=== PATIENT | female | born 1985 | race Caucasian/White ===

== ENCOUNTER 2017-08-10 18:02 | Emergency (ER) | payer OTHER ==
[~2017-08-10] VITALS: Wt 63.5 kg
[~2017-08-10 18:02] MED LIST: ATIVAN2 MG PO
[2017-08-10 18:44] LABS: BASO % 0.4 % (0.0-1.0); EOS # 0.2 10*3/uL (0.0-0.4); EOS % 2.4 % (1.0-4.0); HEMATOCRIT 40.7 % (37.0-47.0); HEMOGLOBIN 13.4 g/dl (12.0-16.0); LYMPH # 2.6 10*3/uL (1.3-4.4); LYMPH % 30.3 % (27.0-41.0); MEAN CELL VOLUME 91.1 fl (81.0-99.0); MEAN CORPUSCULAR HGB CONC 32.9 g/dl (33.0-37.0); MEAN PLATELET VOLUME 9.6 fl (9.6-12.3); MONO # 0.6 10*3/uL (0.1-1.0); MONO % 7.1 % (3.0-9.0); NEUT % 59.6 % (47.0-73.0); PLATELET COUNT AUTOMATED 183 10*3/uL (130-400); RED BLOOD COUNT 4.47 10*6/uL (4.10-5.10); RED CELL DISTRI WIDTH 12.1 % (0-14.5); WHITE BLOOD COUNT 8.4 10*3/uL (4.8-10.8)
[2017-08-10 18:59] LABS: ALKALINE PHOSPHATASE 50 U/L (45-117); BUN 13 mg/dl (7-24); CHLORIDE 105 mmol/L (98-107); CREATININE 0.58 mg/dL (0.55-1.02); POTASSIUM 3.7 mmol/L (3.5-5.1); SGOT/AST 22 IU/L (3-35); SGPT/ALT 29 U/L (12-78); SODIUM 141 mmol/L (136-145); TOTAL PROTEIN 7.6 gm/dL (6.4-8.2)
[2017-08-10] MEDS ORDERED: PREDNISONE10 MG PO (19:07)
[2017-08-10] MEDS ORDERED: FLONASE ALLERG9.9 ML NAS (19:07)
[2017-08-10] MEDS ORDERED: CLARITIN10 MG PO (19:07)
== END 2017-08-10 19:09 | disposition home or self-care (01) ==
LOC: ED 18:02
PROVIDERS: Nurse Practitioner Family
DX: J02.9 Acute pharyngitis, unspecified (principal); F17.200 Nicotine dependence, unspecified, uncomplicated

== ENCOUNTER 2018-09-11 18:06 | Emergency (ER) | payer OTHER ==
[~2018-09-11] VITALS: Ht 157.4 cm; Wt 63.5 kg
[~2018-09-11 18:06] MED LIST changes: +CLARITIN10 MG PO; +FLONASE ALLERG9.9 ML NAS; +PREDNISONE10 MG PO
[2018-09-11 18:21] LABS: BILIRUBIN NEGATIVE (NEGATIVE); BLOOD NEGATIVE (NEGATIVE); CLARITY CLEAR (CLEAR); COLOR YELLOW (YELLOW); GLUCOSE NEGATIVE (NEGATIVE); KETONE NEGATIVE (NEGATIVE); LEUKO ESTERASE 1+ (NEGATIVE); NITRITE NEGATIVE (NEGATIVE); SPECIFIC GRAVITY 1.015 (1.005-1.030); UROBILINOGEN 0.2 E.U./dl (0.2-1.0)
[2018-09-11 18:24] LABS: BACTERIA 1+
[2018-09-11] MEDS ORDERED: AMINOPHYLLIN200 MG PO (18:34)
== END 2018-09-11 19:11 | disposition home or self-care (01) ==
LOC: ED 18:06
PROVIDERS: Physician Assistant
DX: N39.0 Urinary tract infection, site not specified (principal); Z32.02 Encounter for pregnancy test, result negative; Z79.899 Other long term (current) drug therapy

== ENCOUNTER → 2018-10-24 | Outpatient (CLI) | payer OTHER ==
[~2018-10-24] MED LIST changes: +AMINOPHYLLIN200 MG PO
== END | disposition home or self-care (01) ==
LOC: US 16:00
DX: D25.2 Subserosal leiomyoma of uterus (principal)